=== PATIENT | female | born 1985 | race American Indian/Alaskan Native ===

== ENCOUNTER 2021-03-06 09:07 | Emergency (ER) | payer OTHER ==
[2021-03-06 09:14] VITALS: BP 149/74
[2021-03-06] MEDS ORDERED: ACETAMINOPHEN 325 MG TAB PO ONE (09:23)
--- NOTE | 2021-03-06 09:23 | Emergency Department Report ---
ED Female HPI - General Chief complaint: Abdominal Pain Stated complaint: PELVIC PAIN Time Seen by Provider: 03/06/21 09:15 Source: patient Mode of arrival: Ambulatory Limitations: No Limitations - History of Present Illness Initial comments: 36 year old female presents to ED with complaints of right pelvic pain. Onset was about 4 days ago. She describes it as a 'sore" pain. She states it was intermittent at first but became constant last night. She states its worse when she walks, coughs, and even when she sneeze. She reports urinary frequency but states she has this on a regular basis. She denies any other UTI symptoms. She denies any abnormal vaginal discharge on bleeding. She denies any bowel changes, vomiting or nausea. She states her [facility] was 01/11/2021. She is not on control. She took home preg test this past monday and it was negative. She denies any new sexual partners. She denies similar pain in past and she denies any abdominal surgeries in past. MD Complaint: pelvic pain -: days(s) (4) - Related Data Previous Rx's Medication Instructions Recorded Last Taken Type Ibuprofen [Motrin] 600 mg PO Q8H PRN #30 tablet 03/06/21 Unknown Rx metroNIDAZOLE [Flagyl] 500 mg PO Q12HR #14 tab 03/06/21 Unknown Rx Allergies Allergy/AdvReac Type Severity Reaction Status Date / Time No Known Allergies Allergy Unverified 03/06/21 09:11 ED Review of Systems ROS: Stated complaint: PELVIC PAIN Other details as noted in HPI Comment: All other systems reviewed and negative Constitutional: denies: chills, fever Eyes: denies: eye pain, eye discharge, vision change ENT: denies: ear pain, throat pain Respiratory: denies: cough, shortness of breath, SOB with exertion, SOB at rest, wheezing Cardiovascular: denies: chest pain, palpitations, dyspnea on exertion, edema, syncope, paroxysmal nocturnal dyspnea Endocrine: no symptoms reported Gastrointestinal: abdominal pain, other (pelvic pain ). denies: nausea, vomiting, diarrhea, constipation, hematemesis, melena Genitourinary: denies: urgency, dysuria, frequency, hematuria, discharge, abnormal menses, dyspareunia Musculoskeletal: denies: back pain, joint swelling, arthralgia, myalgia Skin: denies: rash, lesions, change in color, change in hair/nails, pruritus Neurological: denies: headache, weakness, numbness, paresthesias, confusion, abnormal gait, vertigo Psychiatric: denies: anxiety, depression, auditory hallucinations, visual hallucinations, homicidal thoughts, suicidal thoughts Hematological/Lymphatic: denies: easy bleeding, easy bruising, swollen glands ED Past Medical Hx - Past Medical History Previous Medical History?: Yes Additional medical history: VAGINAL DELIVERY X 1 - Surgical History Past Surgical History?: No - Medications Home Medications: Home Medications Medication Instructions Recorded Confirmed Last Taken Type Ibuprofen [Motrin] 600 mg PO Q8H PRN #30 tablet 03/06/21 Unknown Rx metroNIDAZOLE [Flagyl] 500 mg PO Q12HR #14 tab 03/06/21 Unknown Rx ED Physical Exam - General Limitations: No Limitations General appearance: alert, in no apparent distress - Head Head exam: Present: atraumatic, normocephalic, normal inspection - Eye Eye exam: Present: normal appearance, PERRL, EOMI Pupils: Present: normal accommodation - Neck Neck exam: Present: normal inspection, full ROM - Respiratory Respiratory exam: Present: normal lung sounds bilaterally. Absent: respiratory distress, wheezes, rales, rhonchi - Cardiovascular Cardiovascular Exam: Present: regular rate, normal rhythm, normal heart sounds - GI/Abdominal GI/Abdominal exam: Present: soft, tenderness (mainly right pelvic area with mild guarding ). Absent: distended, rebound - External exam: Present: normal external exam, other (Potato Chip Sorter present ). Absent: erythema, swelling, lesions, lacerations, ecchymosis, bleeding Speculum exam: Present: vaginal discharge (scant amount of clear mucous d/c. ), cervical discharge (small amt white d/c ). Absent: vaginal bleeding, foreign body, tissue, laceration Bi-manual exam: Present: adnexal tenderness (Moderate right ). Absent: adnexal mass, uterine enlargement, uterine tenderness - Neurological Exam Neurological exam: Present: alert, oriented X3, CN II-XII intact, normal gait - Psychiatric Psychiatric exam: Present: normal affect, normal mood - Skin Skin exam: Present: intact ED Course Vital Signs 03/06/21 03/06/21 09:13 09:31 Temperature 98.9 F Pulse Rate 86 Respiratory 20 16 Rate Blood Pressure 149/74 [Right] O2 Sat by Pulse 100 Oximetry ED Medical Decision Making - Lab Data Result diagrams: 03/06/21 09:49 03/06/21 09:49 - Radiology Data Patient: CARINE HENLEY MR#: Irving [id number] : 1985 Acct:[id number] Age/Sex: 36 / F ADM Date: 03/06/21 Loc: ED Attending Dr: Ordering Physician: MEREDITH MOREAU Date of Service: 03/06/21 Procedure(s): US pelvic complete Accession Number(s): [id number] cc: MEREDITH MOREAU Pelvic Ultrasound HISTORY: severe pelvic pain. TECHNIQUE: Grayscale and color imaging performed. COMPARISON: None FINDINGS: Uterus measures 8.3 x 5.1 x 4.8 cm with endometrial echocomplex measuring 1 cm. Both ovaries are normal in size with a 1.7 cm simple cyst on the right. No pelvic free fluid. IMPRESSION: Simple right ovarian cyst. Otherwise unremarkable exam. Signer Name: João Asif MD Signed: 03/06/2021 12:01 PM Workstation Name: [id number] Transcribed By: CLAIRE Dictated By: João Asif MD Electronically Authenticated By: João Asif MD Signed Date/Time: 03/06/21 1201 DD/ 1200 TD/TT: - Medical Decision Making All labs reviewed -- wet prep + BV but otherwise unremarkable Pelvic US shows 1.7 right ovarian cyst but not other abnormalities. Patient's pain is mainly right pelvic suspect is related to ovarian cyst. Abdominal exam shows soft abdomen, with no McBurney's point tenderness . I do not suspect appendicitis or any other acute intra-abdominal emergencies at this time. Physical exam also not consistent with PID. Patient denies any concern for STD as she has had the same marital partner for several years. Discussed all results with patient. Recommend that she follows up with [facility] [employer] for further evaluation of her ovarian cyst and also her missed periods. She understands to return to the ER if her pain worsens or changes in any way. patient is not toxic, not ill-appearing and not in any significant distress. Her vital signs are stable. She is neurologically intact with a normal gait. She expressed onset of all instructions and agree with plan. Patient was stable at time of discharge Critical care attestation.: If time is entered above; I have spent that time in minutes in the direct care of this critically ill patient, excluding procedure time. ED Disposition Clinical Impression: Ovarian cyst, Bacterial vaginosis, Missed periods Disposition: 01 HOME / SELF CARE / HOMELESS Is pt being admited?: No Does the pt Need Aspirin: No Condition: Stable Instructions: Bacterial Vaginosis, [id number], Ovarian Cyst, Bacterial Vaginosis (ED), Abdominal Pain (ED) Additional Instructions: Take the motrin as prescribed for pain. Take the flagyl as prescribed and do not drink alcohol while taking it. Take it with food. I do recommend following up with your [employer] [facility] for further evaluation of your ovarian cyst and you missing her periods. Return to the ER if your symptoms changes or worsens in any way. Prescriptions: metroNIDAZOLE [Flagyl] 500 mg PO Q12HR #14 tab Ibuprofen [Motrin] 600 mg PO Q8H PRN #30 tablet PRN Reason: Pain Referrals: MALINI DONALDSON MD [Primary Care Provider] - 3-5 Days Forms: Work/School Release Form(ED) Time of Disposition: 12:22
[2021-03-06 10:08] LABS: Basophils % (Auto) 0.4 % (0.0-1.8); Eosinophils # (Auto) 0.1 K/mm3 (0.0-0.4); Eosinophils % (Auto) 1.5 % (0.0-4.3); Hematocrit 39.7 % (30.3-42.9); Hemoglobin 12.7 gm/dl (10.1-14.3); Lymphocytes # (Auto) 1.4 K/mm3 (1.2-5.4); Lymphocytes % (Auto) 27.1 % (13.4-35.0); Mean Corpuscular HGB Conc 32 % (30-34); Mean Corpuscular Volume 93 fl (79-97); Monocytes # (Auto) 0.4 K/mm3 (0.0-0.8); Monocytes % (Auto) 7.4 % (0.0-7.3); Platelet Count 327 K/mm3 (140-440); Red Blood Count 4.28 M/mm3 (3.65-5.03); Red Cell Distribution Width 13.4 % (13.2-15.2)
[2021-03-06 10:33] LABS: Bilirubin,Urine NEG (Negative); Blood,Urine NEG (Negative); Color,Urine Yellow (Yellow); Mucus,Urine 1+ /HPF; Protein,Urine <15 mg/dL mg/dL (Negative); WBC,Urine < 1.0 /HPF (0.0-6.0)
[2021-03-06 10:33] LABS: Alanine Aminotransferase 7 units/L (7-56); Albumin 4.2 g/dL (3.9-5); Blood Urea Nitrogen 15 mg/dL (7-17); Calcium 9.1 mg/dL (8.4-10.2); Hemolysis Index 7
[2021-03-06 10:37] LABS: BUN/Creatinine Ratio 30
--- NOTE | 2021-03-06 12:06 | Ultrasound Report ---
Pelvic Ultrasound HISTORY: severe pelvic pain. TECHNIQUE: Grayscale and color imaging performed. COMPARISON: None FINDINGS: Uterus measures 8.3 x 5.1 x 4.8 cm with endometrial echocomplex measuring 1 cm. Both ovarie s are normal in size with a 1.7 cm simple cyst on the right. No pelvic free fluid. IMPRESSION: Simple right ovarian cyst. Otherwise unremarkable exam. Signer Name: João Asif MD Signed: 03/06/2021 12:01 PM Workstation Name: [id number]
== END 2021-03-06 12:32 | disposition home or self-care (01) ==
LOC: ED 09:07
DX: N83.209 Unspecified ovarian cyst, unspecified side (principal); N77.1 Vaginitis, vulvitis and vulvovaginitis in diseases classified elsewhere; N91.2 Amenorrhea, unspecified
CPT/HCPCS: 36415; 76856; 80053; 81001; 84703; 85025; 87210; 87591; 99284